=== PATIENT | male | born 1995 | race Caucasian/White ===

== ENCOUNTER 2025-02-24 21:52 | Emergency (ER) | payer MEDICAID, SELFPAY ==
[2025-02-24] VITALS (92 sets, daily range): BP systolic 167–185; BP diastolic 100–116; PULSE 95–137; RESP 11–27; TEMP 36.9; O2SAT 93–99
--- NOTE | 2025-02-24 21:45 | RT.EKG_ITS ---
APPROVED REPORT Exam: Resting ECG Reason for Exam: chest pain Patient Location: E HR:136 bpm ECG Measurements Heart Rate 136 AXIS MO 137 P 68 QRSd 88 QRS 63 QT 275 T -90 QTc 415 Conclusion Sinus tachycardia...rate> 99 Probable left atrial enlargement...P >50mS, <-0.10mV V1 Nonspecific repol abnormality, diffuse leads...ST dep, T flat/neg, ant/lat/inf I have reviewed and interpreted ECG and agree with software generated interpretation.
--- NOTE | 2025-02-24 22:00 | ED.GENADUL_ITS ---
Discharge Plan Disposition Patient Disposition: Home Condition: Good Discharge Details Clinical Impression: Chest pain, Cocaine use Primary Care Provider: None,None ED Provider: Gaston Ferraro Meds and New Rx's Prescriptions: Continued quetiapine 150 mg tablet 150 mg PO DAILY Discharge Instructions Instructions: Chest Pain, Adult ED Additional Instructions: You were seen for an episode of chest pain. Thankfully, your workup is reassuring though your heart rate and blood pressure were quite elevated likely related to the cocaine use. As we discussed avoid this drug in the future. I have placed a referral with case management to follow-up and help you obtain a primary care. Return to ED for any new or worsening chest pain, increasing shortness of breath, neurologic change, abdominal pain or other concerns. Referrals: Care Management [Provider Group] HPI General Mode of arrival: ambulatory . Date/Time Provider Initiated Documentation: 02/24/25 22:00 . Limitations to Documentation: no limitations . Information obtained by: patient and RN notes reviewed . HPI Narrative: Patient presents to ED with complaint of chest pain that started about 60 to 90 minutes ago. Lower left chest sharp in nature now more just dull but still present. Radiated a little bit up into the upper chest but not really into the neck, back, arms. Has been smoking marijuana and crack cocaine over the weekend including this evening prior to chest pain starting. He does not always smoke crack cocaine but it is not new to him. He does feel little short of breath. He has had some sweats and also developed some sores on his tongue about 4 days ago. Denies fever, sore throat, earache, congestion, cough. Has some burning discomfort in his abdomen a little bit but denies any nausea vomiting. Has been having diarrhea the last few days. He does smoke cigarettes. He does not see physicians regularly but as far as he knows he has no significant medical issues. Related Data Home Medications ?Medication ?Instructions ?Recorded ?Confirmed quetiapine 150 mg tablet 150 mg PO DAILY 02/24/25 02/24/25 Allergies Allergy/AdvReac Type Severity Reaction Status Date / Time No Known Drug Allergies Allergy Unknown Verified 02/24/25 23:45 General Stated Complaint: Chest Pain KYLE: 3 Exam Narrative Exam Narrative: Const: WDWN male in NAD. VS per triage. HEENT: NC/AT. Normal facial exam. Aphthous ulcer tip of right tongue. Neck: Supple. Trachea midline. Lungs: Normal respiratory effort. Lungs are clear. Cor: RRR without murmur. Good radial pulses. GI: Soft/ND/NT. Neuro: A+O x 3. Normal speech, mentation, gait. Cranial nerves II - XII grossly intact. No gross motor or sensory deficit. Ext: No C/C/E. Course Vital Signs Vital signs: Vital Signs Temperature 98.4 F 02/24/25 21:53 Pulse 137 H 02/24/25 21:53 Respiratory Rate 16 02/24/25 21:53 Blood Pressure 167/100 H 02/24/25 21:53 Pulse Oximetry 99 02/24/25 21:53 Temperature 98.4 F 02/24/25 21:53 Pulse 137 H 02/24/25 21:53 Respiratory Rate 16 02/24/25 21:53 Blood Pressure 167/100 H 02/24/25 21:53 Pulse Oximetry 99 02/24/25 21:53 Pain Level 6 02/24/25 21:53 Medical Decision Making Patient presents to ED with onset of chest pain 60 to 90 minutes prior to arrival. This occurred after smoking marijuana and cocaine with his roommate. Admits to smoking a fair amount of both over the . He does smoke marijuana regularly but not crack cocaine though he has in the past. Pain initially started out sharp in nature now just dull but still present. Not really described as pleuritic in nature. Does not change in regards to positioning. Has a burning sensation in his upper abdomen but no nausea or vomiting. He does smoke cigarettes otherwise no known cardiac risk factors. He appears anxious and is tachycardic as well as hypertensive which could be due to anxiety or the crack cocaine use. Chest pain differential includes pericarditis given the aphthous ulcer on his tongue. Consider cocaine induced chest pain/ischemia. PE seems less likely but given his tachycardia he cannot be PERCed out so D-dimer ordered. Dissection seems unlikely given presentation. Will give aspirin and lorazepam for symptoms given his cocaine use. His EKG from triage is sinus tachycardia with diffuse ST depression which may very well be rate related versus pericarditis versus possible ischemia but given the diffuse nature this seems unlikely. Initial laboratory studies are fairly unremarkable. Has a mildly elevated white count and slightly low potassium. Liver function and lipase are normal. First troponin normal. D-dimer normal. Patient's heart rate and anxiety improved with Ativan. Blood pressure came down over time. Chest x-ray was obtained given his negative D-dimer. Per my review this is normal. Second troponin negative. Patient still with some sharp chest pain on and off so given a dose of ketorolac. A third troponin and repeat EKG were obtained. This EKG is now normal per my read suggesting the diffuse ST segments were likely rate related. His third troponin is negative. Patient does not have primary care. Will place him on referral list for care management to assist in obtaining primary care. Patient strongly encouraged to avoid cocaine in the future. It is also suggested that he obtain his marijuana from a dispensary. He is discharged home with return precautions. Imaging Data Radiologic Study: Attestation: I personally reviewed and interpreted this imaging study as follows: Imaging: X-Ray My impression: Normal chest x-ray Lab Data Lab results reviewed: Yes I reviewed the patient's lab results. Lab results narrative: See [facility] ECG Data Attestation: I personally reviewed and interpreted this ECG (s) as follows: Prior ECG tracings: not available for review Interpretation: See EKG/MDM PFSH All Active Problems (Updated 02/25/25 @ 02:17 by Gaston Ferraro MD) Cocaine use (Acute) Chest pain (Acute) Medical History (Updated 02/25/25 @ 02:17 by Gaston Ferraro MD) No significant past medical history Social History Smoking/Tobacco Use Status: Current every day Smoking risk assessment performed?: Yes Alcohol Intake: current Alcohol Intake frequency: a few times a week Drug use: Daily Substance use type: marijuana and crack/cocaine Do you feel safe at home: Yes Do you feel safe in your relationship?: Yes
[2025-02-24] MEDS: Aspirin 81 MG CHEW 324 MG CH (22:36)
[2025-02-24] MEDS: LORazepam 20 MG/10 ML VIAL IVP (22:36)
[2025-02-24 22:45] LABS: Abs Immature Grans 0.03 10^3/uL (0.0-0.06); Absolute Basophil Count 0.03 10^3/uL (0.0-0.2); Absolute Eosinophil Count 0.01 10^3/uL (0.0-0.7); Absolute Lymphocyte Count 1.22 10^3/uL (1.2-3.4); Absolute Monocyte Count 0.76 10^3/uL (0.1-0.8); Absolute Neutrophil Count 9.11 10^3/uL (1.2-6.7); Basophils % 0.3 %; Eosinophils % 0.1 %; HCT 44.7 % (40.0-50.0); HGB 15.3 g/dL (13.5-17.5); Immature Grans % 0.3 %; Lymphocytes % 10.9 %; MCH 30.9 pg (27.0-33.0); MCHC 34.2 % (32.0-36.0); MCV 90 fL (80-95); MPV 10.2 fL (8.0-11.0); Monocytes % 6.8 %; Neutrophils % 81.6 %; Platelet Count 244 10^3/uL (130-400); RBC 4.95 10^6/uL (4.36-5.78); RDW 13.3 % (11.8-14.1); WBC 11.17 10^3/uL (4.4-10.8)
--- NOTE | 2025-02-24 23:00 | DI.RAD_ITS ---
Exam(s) XR CHEST 2V PA LATERAL EXAM: XR CHEST 2V PA LATERAL CLINICAL HISTORY: CP TECHNIQUE: 2D digital imaging was performed. Two views. COMPARISON: No exams were available for comparison FINDINGS: HEART: Normal size. Aorta: Not dilated. PULMONARY VASCULATURE: Normal. MEDIASTINUM: Unremarkable. LUNGS: Clear. PLEURAL SPACE: No pleural effusion or pneumothorax. BONE:Unremarkable for age. SOFT TISSUES: Unremarkable. IMPRESSION: No acute abnormality. DATA REPOSITORY: RADIATION DOSE DELIVERED:
[2025-02-24 23:02] LABS: ALT 30 U/L (16-63); AST 27 U/L (15-37); Albumin 4.2 g/dL (3.4-5.0); Alkaline Phosphatase 89 U/L (46-116); Anion Gap 5.6 mmol/L (3-11); BUN 11 mg/dL (7-18); Bilirubin, Total 0.4 mg/dL (0.2-1.0); CO2 29.4 mmol/L (21.0-32.0); CREATININE 1.2 mg/dL (0.70-1.30); Calcium 9.1 mg/dL (8.5-10.1); Chloride 103 mmol/L (98-107); Estimated GFR 82.92 (mL/min/1.73m2); Glucose 112 mg/dL (74-106); Lipase 31 U/L (<78); Magnesium 1.9 mg/dL (1.8-2.4); Potassium 3.4 mmol/L (3.5-5.1); Sodium 138 mmol/L (136-145); Total Protein 7.3 g/dL (6.4-8.2); Troponin I 22 ng/L (<or=76)
[2025-02-24 23:03] LABS: *AMPHETAMINES SCREEN URINE Negative (Negative); *BARBITURATES SCREEN URINE Negative (Negative); *BENZODIAZEPINES SCREEN URINE Negative (Negative); Cannabinoids THC Positive (Negative); Cocaine Screen,Urine Positive (Negative); METHADONE URINE SCREEN Negative (Negative); OPIATES URINE SCREEN Negative (Negative); Tricyclic Antidepressants Negative (Negative)
[2025-02-24 23:10] LABS: D-Dimer 223 ng/mlFEU (<500)
[2025-02-25] VITALS (68 sets, daily range): BP systolic 164–185; BP diastolic 103–140; PULSE 81–116; RESP 10–29; TEMP 36.4; O2SAT 96–100
[2025-02-25 00:05] LABS: Troponin I 30 ng/L (<or=76)
[2025-02-25] MEDS: Ketorolac 15 MG/ML VIAL IVP (01:28)
--- NOTE | 2025-02-25 01:30 | RT.EKG_ITS ---
APPROVED REPORT Exam: Resting ECG Reason for Exam: Chest pain Patient Location: E HR:87 bpm ECG Measurements Heart Rate 87 AXIS LA 141 P 54 QRSd 90 QRS 52 QT 357 T 22 QTc 430 Conclusion Sinus rhythm...normal P axis, V-rate 60- 99 Sinus Arrhythmia Normal [place]/Interval Normal ST Compared to prior EKG performed on 02/24/2025 at 21:52, ST segments are now normal.
--- NOTE | 2025-02-25 01:35 | DI.[facility]_ITS ---
PROCEDURE INFORMATION: Exam: XR Chest Exam date and time: 02/24/2025 11:49 PM Age: 29 years old Clinical indication: Other: Cp; Chest pain TECHNIQUE: Imaging protocol: Radiologic exam of the chest. Views: 2 views. COMPARISON: No relevant prior studies available. FINDINGS: Lungs: Normal. Pleural spaces: Normal. Heart/Mediastinum: Normal. Bones/joints: No acute abnormality. IMPRESSION: No acute findings. Dictated and Authenticated by: Vic Vizcaino MD. Orderin Ronan Feldman MD
[2025-02-25 02:06] LABS: Troponin I 30 ng/L (<or=76)
== END 2025-02-25 02:30 | disposition home or self-care (01) ==
PROVIDERS: Emergency Provider Emergency Medicine
DX: R07.9 Chest pain, unspecified (principal); R00.0 Tachycardia, unspecified; F14.90 Cocaine use, unspecified, uncomplicated; F12.90 Cannabis use, unspecified, uncomplicated; F17.290 Nicotine dependence, other tobacco product, uncomplicated
CPT/HCPCS: 80053; 80307; 83690; 93005; 96374; 96375; 99284; 71046; 83735; 84484; 85025; 85379; 93010; J1885; J2060

== ENCOUNTER 2025-03-24 23:28 | Emergency (ER) | payer MEDICAID, SELFPAY ==
--- NOTE | 2025-03-24 23:15 | RT.EKG_ITS ---
APPROVED REPORT Exam: Resting ECG Reason for Exam: Chest tightness Patient Location: E HR:111 bpm ECG Measurements Heart Rate 111 AXIS GA 142 P 66 QRSd 102 QRS 74 QT 336 T -16 QTc 456 Conclusion Sinus tachycardia...rate> [address] segment or T wave abnormalities to suggest occlusive CO
[2025-03-24 23:30] VITALS: BP 152/100; PULSE 110; RESP 16; TEMP 36.1; O2SAT 96
[2025-03-24 23:46] VITALS: BP 155/93; PULSE 103; PULSE 105; RESP 17; O2SAT 97
[2025-03-24 23:47] VITALS: BP 152/100
[2025-03-24 23:47] LABS: Abs Immature Grans 0.04 10^3/uL (0.0-0.06); Absolute Basophil Count 0.03 10^3/uL (0.0-0.2); Absolute Eosinophil Count 0.02 10^3/uL (0.0-0.7); Absolute Lymphocyte Count 1.59 10^3/uL (1.2-3.4); Absolute Monocyte Count 0.84 10^3/uL (0.1-0.8); Basophils % 0.3 %; Eosinophils % 0.2 %; HCT 41.9 % (40.0-50.0); HGB 14.7 g/dL (13.5-17.5); Immature Grans % 0.3 %; Lymphocytes % 13.8 %; MCH 31.3 pg (27.0-33.0); MCHC 35.1 % (32.0-36.0); MCV 89 fL (80-95); MPV 9.8 fL (8.0-11.0); Monocytes % 7.3 %; Neutrophils % 78.1 %; Platelet Count 233 10^3/uL (130-400); RDW 11.9 % (11.8-14.1); RDW-SD 39.6 fL; WBC 11.54 10^3/uL (4.4-10.8)
[2025-03-24 23:48] LABS: Absolute Neutrophil Count 9.01 10^3/uL (1.2-6.7)
[2025-03-24] MEDS: MYLANTA 30 ML, LIDOCAINE 2% VISCOUS UD 15 ML PO (23:54)
[2025-03-24] MEDS: Aspirin 81 MG CHEW 324 MG CH (23:54)
--- NOTE | 2025-03-25 | DI.RAD_ITS ---
Exam(s) XR CHEST 2V PA LATERAL EXAM: XR CHEST 2V PA LATERAL CLINICAL HISTORY: Chest pain TECHNIQUE: 2D digital imaging was performed. Two views. COMPARISON: CR,XR XR CHEST 2V PA LATERAL from 02/24/2025 FINDINGS: HEART: Normal size. Aorta: Not dilated. PULMONARY VASCULATURE: Normal. MEDIASTINUM: Unremarkable. LUNGS: Clear. PLEURAL SPACE: No pleural effusion or pneumothorax. BONE:Unremarkable for age. SOFT TISSUES: Unremarkable. IMPRESSION: No acute abnormality. The preliminary [facility] report was reviewed. DATA REPOSITORY: RADIATION DOSE DELIVERED:
[2025-03-25 00:01] VITALS: BP 163/96; PULSE 101; PULSE 103; O2SAT 98
[2025-03-25 00:03] LABS: INR 1.1 (0.9-1.1); PTT Activated 25.2 sec (20.6-30.2); Prothrombin Time 11.3 sec (9.1-11.1)
[2025-03-25 00:14] LABS: ALT 39 U/L (16-63); AST 36 U/L (15-37); Alkaline Phosphatase 80 U/L (46-116); Anion Gap 8.4 mmol/L (3-11); BUN 11 mg/dL (7-18); Bilirubin, Total 0.2 mg/dL (0.2-1.0); CO2 26.6 mmol/L (21.0-32.0); CREATININE 0.9 mg/dL (0.70-1.30); Calcium 8.4 mg/dL (8.5-10.1); Chloride 105 mmol/L (98-107); D-Dimer 334 ng/mlFEU (<500); Glucose 104 mg/dL (74-106); Lipase 55 U/L (<78); Magnesium 1.8 mg/dL (1.8-2.4); NT-proBNP 18 pg/mL (<300); Potassium 3.2 mmol/L (3.5-5.1); Sodium 140 mmol/L (136-145); Total Protein 6.6 g/dL (6.4-8.2); Troponin I 7 ng/L (<or=76)
--- NOTE | 2025-03-25 00:40 | DI.[facility]AD_ITS ---
PROCEDURE INFORMATION: Exam: XR Chest Exam date and time: 03/25/2025 12:18 AM Age: 29 years old Clinical indication: Other: Chest pain TECHNIQUE: Imaging protocol: Radiologic exam of the chest. Views: 2 views. COMPARISON: CR XR CHEST 2V PA LATERAL 02/24/2025 11:49 PM FINDINGS: Lungs: Unremarkable. No consolidation. Pleural spaces: Unremarkable. No pleural effusion. No pneumothorax. Heart/Mediastinum: Unremarkable. No cardiomegaly. Bones/joints: Unremarkable. IMPRESSION: No acute findings. Dictated and Authenticated by: Al Bartlett MD. Orderin Kevon Phillips MD
--- NOTE | 2025-03-25 00:53 | ED.GENADUL_ITS ---
Discharge Plan Disposition Patient Disposition: Home Condition: Good Discharge Details Clinical Impression: Chest pain Primary Care Provider: None,None ED Provider: Jacqueline Lund Home Meds and New Rx's Prescriptions: No Action No Known Home Meds Discharge Instructions Instructions: Chest Pain, Adult ED Additional Instructions: You need to establish care with a primary care doctor to followup on your symptoms. A list has been provided to you and we have asked care management to reach out to you as well. At your appointment, please discuss your chest pain as well as your blood pressure which is high here in the emergency department. Return to the emergency department for new or worsening symptoms including new/different/worse chest pain, difficulty breathing, feeling like you are going to pass out, numbness or weakness in your arms, or if you have any other concerns. HPI General Mode of arrival: EMS . Date/Time Provider Initiated Documentation: 03/24/25 23:37 . Limitations to Documentation: no limitations . Information obtained by: patient and old records reviewed (ed visit note january 2025) . HPI Narrative: 29yo previously healthy male presenting for chest discomfort. Onset one hour prior to arrival while watching TV, dull chest tightness and a feeling of 'burning' in his mid back. Some difficulty breathing when it first started but not now. Pain is constant. No alleviating or aggravating factors. Has never had pain like this before. Seen in this ED in January for chest pain, states that pain was more 'sharp'. Has not yet established with a PCP. No family history of early cardiac disease or sudden unexpected . Otherwise in his usual state of health with no fevers, chills, rash, nausea, vomiting, hematuria, abdominal pain, numbness, tingling, weakness, or other concerns. Related Data Home Medications ?Medication ?Instructions ?Recorded ?Confirmed Unknown [No Known Home Meds] 03/24/25 0 03/24/25 Allergies Allergy/AdvReac Type Severity Reaction Status Date / Time No Known Drug Allergies Allergy Unknown Verified 03/24/25 23:34 General Stated Complaint: Chest Pain KYLE: 3 Review of Systems Narrative: see HPI Exam Narrative Exam Narrative: General: Alert, well appearing, well nourished Head: Normocephalic, atraumatic Neck: Trachea midline, ?Neck supple. ENT: ?MMM.? No oropharygeal lesions or exudate. Cardiac: ?Tachycardiac, regular,, no murmurs appreciated Resp: No respiratory distress. CTAB. Abd: ?Soft, non-distended, nontender : ?No suprapubic tenderness. No CVA tenderness. Extremities: ?No deformities.? No peripheral edema. Equal radial pulses bilaterally. Neurologic: GCS 15. ? Moves all extremities freely against gravity. Sensation intact to light touch symmetric BL UE. 5/5 strength BL UE. Course Vital Signs Vital signs: Vital Signs Temperature 36.1 C L 03/24/25 23:30 Pulse 110 H 03/24/25 23:30 Respiratory Rate 16 03/24/25 23:30 Blood Pressure 152/100 H 03/24/25 23:30 Pulse Oximetry 96 03/24/25 23:30 Temperature 36.1 C L 03/24/25 23:30 Pulse 110 H 03/24/25 23:30 Respiratory Rate 16 03/24/25 23:30 Respiratory Effort Short of Breath 03/24/25 23:42 Respiratory Depth Normal 03/24/25 23:42 Respiratory Pattern Normal 03/24/25 23:42 Blood Pressure 152/100 H 03/24/25 23:47 Blood Pressure Mean 117 03/24/25 23:47 Pulse Oximetry 96 03/24/25 23:30 Oxygen Delivery Method Room Air 03/24/25 23:30 Oxygen Flow Rate 0 03/24/25 23:30 Pain Level 6 03/24/25 23:30 Lab/Test Results Lab/Test Results: Laboratory Tests Range/Units 03/24/25 23:41 WBC (4.4-10.8) 10^3/uL 11.54 H RBC (4.36-5.78) 10^6/uL 4.70 Hgb (13.5-17.5) g/dL 14.7 Hct (40.0-50.0) % 41.9 MCV (80-95) fL 89 MCH (27.0-33.0) pg 31.3 MCHC (32.0-36.0) % 35.1 RDW (11.8-14.1) % 11.9 Plt Count (130-400) 10^3/uL 233 MPV (8.0-11.0) fL 9.8 Immature Gran % % 0.3 Neutrophils % % 78.1 Lymphocytes % % 13.8 Monocytes % % 7.3 Eosinophils % % 0.2 Basophils % % 0.3 Nucleated RBC % (0.0-0.3) % 0.0 Absolute Neutrophils (1.2-6.7) 10^3/uL 9.01 H Absolute Lymphocytes (1.2-3.4) 10^3/uL 1.59 Absolute Monocytes (0.1-0.8) 10^3/uL 0.84 H Absolute Eosinophils (0.0-0.7) 10^3/uL 0.02 Absolute Basophils (0.0-0.2) 10^3/uL 0.03 PT (9.1-11.1) sec 11.3 H INR (0.9-1.1) 1.1 APTT (20.6-30.2) sec 25.2 D-Dimer (<500) ng/mlFEU 334 Sodium (136-145) mmol/L 140 Potassium (3.5-5.1) mmol/L 3.2 L Chloride (98-107) mmol/L 105 Carbon Dioxide (21.0-32.0) mmol/L 26.6 Anion Gap (3-11) mmol/L 8.4 BUN (7-18) mg/dL 11 Creatinine (0.70-1.30) mg/dL 0.9 Est GFR (CKD-EPI 2020) (mL/min/1.73m2) 117.10 Glucose (74-106) mg/dL 104 Calcium (8.5-10.1) mg/dL 8.4 L Magnesium (1.8-2.4) mg/dL 1.8 Total Bilirubin (0.2-1.0) mg/dL 0.2 AST (15-37) U/L 36 ALT (16-63) U/L 39 Alkaline Phosphatase (46-116) U/L 80 Troponin I (<or=76) ng/L 7 NT-Pro-B Natriuret Pep (<300) pg/mL 18 Total Protein (6.4-8.2) g/dL 6.6 Albumin (3.4-5.0) g/dL 4.0 Lipase (<78) U/L 55 Medical Decision Making 29yo previously healthy male presenting for chest discomfort. Slightly hypertensive and tachycardaic on arrival (SBP 150, HR 110's); in no acute distress and with clear lungs. EKG on arrival sinus tachycardia, appropriate intervals, no ST segment or T wave abnormalities to suggest occlusive OR. History less suggestive of acute coronary syndrome however is possible; will give 325 of ASA as well as GI cocktail while awaiting results of workup. Upper extremity BPs with no significant difference; equal radial pulses. Aortic dissection detection risk score 0; appropriate for screening with dimer. ANDREWe does have a history of cocaine use (and ED visit in January with likely cocaine associated chest pain) however denies recent recreational drug use today and EKG/VS today are less suggestive of acute cocaine toxicity than on his prior visit. If HR does not improve or HR/BP increase, would consider treatment with benzodiazapenes. -Labs reviewed as below, CBC reassuring with mild leukocytosis (nonspecific), CMP with borderline hypokalemia K of 3.2 (oral replacement ordered) and no other actionable abnormalities, Mg normal, coags unremarkable, dimer reassuring against pulmonary embolism or aortic dissection, BNP not suggestive of heart failure, lipase not suggestive of pancreatitis, initial troponin 7. -CXR independently reviewed; no focal pneumonia or pneumothorax on my view, radiology read with no acute findings. On reassessment patient reports pain has resolved, began to improve shortly after GI cocktail. HEART score 1 for RF, low risk. Repeat troponin 8, essentially flat. SBP remains in 150's-160's and HR has improved to low 90's. Would not further pursue ACS/trend troponin/admit to hospital. Appropriate for outpatient followup for possible hypertension, hypokalemia, and outpatient cardiac/GI/chest pain workup. The importance of establishing care with a PCP was stressed and he verbalized understanding. Care management referral was sent for followp within one week and he was also provided with a list of local primary care doctors. He states he will call tomorrow and try to find someone. Return precautions were reviewed and the importance of re-presenting for care if his symptoms return or worsen was stressed. Discharged home; discharge instructions and return precautions were reviewed and the patient verbalized understanding. All questions were answered and he is in full agreement with the plan. Imaging Data Radiologic Study: Imaging: X-Ray Lab Data Lab results reviewed: Yes I reviewed the patient's lab results. Labs: Laboratory Tests Range/Units 03/24/25 03/25/25 23:41 00:30 WBC (4.4-10.8) 10^3/uL 11.54 H RBC (4.36-5.78) 10^6/uL 4.70 Hgb (13.5-17.5) g/dL 14.7 Hct (40.0-50.0) % 41.9 MCV (80-95) fL 89 MCH (27.0-33.0) pg 31.3 MCHC (32.0-36.0) % 35.1 RDW (11.8-14.1) % 11.9 Plt Count (130-400) 10^3/uL 233 MPV (8.0-11.0) fL 9.8 Immature Gran % % 0.3 Neutrophils % % 78.1 Lymphocytes % % 13.8 Monocytes % % 7.3 Eosinophils % % 0.2 Basophils % % 0.3 Nucleated RBC % (0.0-0.3) % 0.0 Absolute Neutrophils (1.2-6.7) 10^3/uL 9.01 H Absolute Lymphocytes (1.2-3.4) 10^3/uL 1.59 Absolute Monocytes (0.1-0.8) 10^3/uL 0.84 H Absolute Eosinophils (0.0-0.7) 10^3/uL 0.02 Absolute Basophils (0.0-0.2) 10^3/uL 0.03 PT (9.1-11.1) sec 11.3 H INR (0.9-1.1) 1.1 APTT (20.6-30.2) sec 25.2 D-Dimer (<500) ng/mlFEU 334 Sodium (136-145) mmol/L 140 Potassium (3.5-5.1) mmol/L 3.2 L Chloride (98-107) mmol/L 105 Carbon Dioxide (21.0-32.0) mmol/L 26.6 Anion Gap (3-11) mmol/L 8.4 BUN (7-18) mg/dL 11 Creatinine (0.70-1.30) mg/dL 0.9 Est GFR (CKD-EPI 2020) (mL/min/1.73m2) 117.10 Glucose (74-106) mg/dL 104 Calcium (8.5-10.1) mg/dL 8.4 L Magnesium (1.8-2.4) mg/dL 1.8 Total Bilirubin (0.2-1.0) mg/dL 0.2 AST (15-37) U/L 36 ALT (16-63) U/L 39 Alkaline Phosphatase (46-116) U/L 80 Troponin I (<or=76) ng/L 7 8 NT-Pro-B Natriuret Pep (<300) pg/mL 18 Total Protein (6.4-8.2) g/dL 6.6 Albumin (3.4-5.0) g/dL 4.0 Lipase (<78) U/L 55 PFSH All Active Problems (Updated 03/25/25 @ 01:05 by Jacqueline Lund MD) Cocaine use (Acute) Chest pain (Acute) Medical History (Updated 03/25/25 @ 01:05 by Jacqueline Lund MD) No significant past medical history Social History Smoking/Tobacco Use Status: Current every day Smoking risk assessment performed?: Yes Alcohol Intake: current Alcohol Intake frequency: a few times a week Drug use: Daily Substance use type: marijuana and crack/cocaine Do you feel safe at home: Yes Do you feel safe in your relationship?: Yes PAWSS Have you Been Recently Intoxicated or Drunk Within the Last 30 days?: No Have you Ever Experienced Previous Episodes of Alcohol Withdrawal?: No Have you ever Experienced Withdrawal Seizures?: No Have you ever Experienced Delirium Tremens(DT)s?: No Have you ever undergone Alcohol Rehabilitation Treatment (i.e, inpt ot outpatient treatment programs)?: No Have you ever Experienced Blackouts?: No Have you ever Combined Alcohol with other Downers within the last 90 days?: No Have you ever Combined Alcohol with any other Substance of Abuse during the last 90 days?: No Positive Blood Alcohol level on Presentation? [PCS.BAL]: No Evidence of Increased Autonomic Activity (i.e. HR>120, tremor, sweating, agitation, nausea)?: No Result: 0
[2025-03-25 00:54] LABS: Troponin I 8 ng/L (<or=76)
[2025-03-25 00:59] VITALS: BP 156/90; PULSE 93
[2025-03-25] MEDS: Potassium Chloride 20 MEQ TABCR 40 MEQ PO (01:00)
[2025-03-25 01:14] VITALS: BP 156/90; PULSE 93; RESP 16; O2SAT 93
== END 2025-03-25 01:15 | disposition home or self-care (01) ==
PROVIDERS: Emergency Provider Student in an Organized Health Care Education/Training Program
DX: R07.9 Chest pain, unspecified (principal); R00.0 Tachycardia, unspecified; F17.200 Nicotine dependence, unspecified, uncomplicated
CPT/HCPCS: 80053; 83690; 93005; 99284; 71046; 83735; 83880; 84484; 85025; 85379; 85610; 85730; 93010

== ENCOUNTER 2025-04-05 02:04 | Emergency (ER) | payer MEDICAID, SELFPAY ==
[2025-04-05 02:04] VITALS: BP 170/111; PULSE 115; RESP 18; TEMP 35.8; O2SAT 97
--- NOTE | 2025-04-05 02:11 | W.ED.GENAD ---
Discharge Plan Discharge Details Chief Complaint: PsychEval Clinical Impression: Hallucinations Primary Care Provider: None,None ED Provider: Jacqueline Lund Home Meds and New Rx's Prescriptions: No Action No Known Home Meds HPI General Mode of arrival: EMS. Date/Time Provider Initiated Documentation: 04/05/25 02:08. Limitations to Documentation: no limitations. Information obtained by: patient, EMS and old records reviewed. HPI Narrative: 29yo M presenting via EMS for hallucinations. Patient reports that today he began hearing voices and seeing things; will not clarify further what these are or what the voices are saying. Denies command hallucinations. He is requesting psychiatric hospitalization. Denies any prior psych hospitalizations. Reports a history of maybe bipolar but denies ever being on any medications for this. Denies ever having hallucinations prior to tonight. Occasionally drinking, frequent marijuana and cocaine. Denies SI/HI. No fevers, chills, rash, nasuea, vomiting, recent head injuries, abdominal pain, chest pain, difficulty breathing, or other concerns. Related Data Home Medications ?Medication ?Instructions ?Recorded ?Confirmed Unknown [No Known Home Meds] 03/24/25 04/05/25 Allergies Allergy/AdvReac Type Severity Reaction Status Date / Time No Known Drug Allergies Allergy Unknown Verified 04/05/25 02:14 General Stated Complaint: PsychEval KYLE: 2 Review of Systems Narrative: see HPI Exam Narrative Exam Narrative: General: Alert,mild agitation Head: Normocephalic, atraumatic Neck: Trachea midline, ?Neck supple. Cardiac: ?Tachycardiac, regular. Resp: No respiratory distress. CTAB. Abd: ?Non-distended Extremities: ?No deformities.? No peripheral edema. Neuro: ? GCS 15.? PERRL.? EOMI.? Fluent speech, no dysarthria. Motor- 5/5 strength symmetric bilateral upper and lower extremities Sensation- ?Intact to light touch and symmetric multiple dermatomes including upper and lower extremities Coordination- No dysmetria on finger to nose Gait/station: ?Normal stance.? No truncal ataxia. Steady gait with equal normal steps Psych: Mild agitation, cooperative.? Adequately groomed.? Mood scared, affect congruent.? Speech with normal volume, rate, rythym and tone. Linear and goal directed.?+AH +VH. Denies command hallucinations. Denies SI/HI. ?Appears to be responding to internal stimuli. No abnormal movements. Course Vital Signs Vital signs: Vital Signs Temperature 35.8 C L 04/05/25 02:04 Pulse 115 H 04/05/25 02:04 Respiratory Rate 18 04/05/25 02:04 Blood Pressure 170/111 H 04/05/25 02:04 Pulse Oximetry 97 04/05/25 02:04 Temperature 35.8 C L 04/05/25 02:04 Temperature Source Tympanic 04/05/25 02:04 Pulse 115 H 04/05/25 02:04 Respiratory Rate 18 04/05/25 02:04 Blood Pressure 170/111 H 04/05/25 02:04 Blood Pressure Position Sitting 04/05/25 02:04 Pulse Oximetry 97 04/05/25 02:04 Oxygen Delivery Method Room Air 04/05/25 02:04 Oxygen Flow Rate 0 04/05/25 02:04 Pain Level 0 04/05/25 02:04 Medical Decision Making 29yo M presenting via EMS for hallucinations; patient reports that today he began hearing voices and seeing things; no command hallucinations. Patient does report possible diagnosis of bipolar but states he has not consistently taken medications and does not take any medications of any kind currently for this but has been on seroquel in the past, and also that this is the first time he has had hallucinations. Prior [facility] visits reviewed, no recorded history of bipolar or psychiatric issues before. Could certainly be bipolar but may be 2/t substance use (frequent cocaine); will also workup for medical causes of new onset psychosis with labs and head CT. Ordered PO zyprexa and ativan for symptoms for now. Hypertensive and tachycardiac on arrival; could be due to agitation and/or stimulant use- will monitor vital signs. EKG sinus tachycardia, appropriate intervals, no ST segment or T wave abnormalities to suggest occlusive CA. Labs reviewed as below, CBC reassuring with no anemia (mild leukocytosis, non-specific), CMP with no actionable abnormalities, TSH normal. CT head independently reviewed; no mass or bleed on my view; radiology read with no acute findings. On reassessment patient remains cooperative, repeat vital signs normalized. During patient belongings search, noted to have bottles prescribed seroquel and acyclovir. Patient is worried that his roommates may have 'laced' his drugs and requests drug test so UDS ordered and positive for cocaine and THC. Medically cleared; [facility] paged to evaluate patient. Will be signed out to oncoming physician; plan to followup [facility] reccs. Imaging Data Radiologic Study: Imaging: CT Scan Radiologist's impression: IMPRESSION: No acute intracranial abnormality Lab Data Lab results reviewed: Yes I reviewed the patient's lab results. PFSH All Active Problems (Updated 04/05/25 @ 06:52 by Jacqueline Lund MD) Hallucinations (Acute) Medical History (Updated 04/05/25 @ 06:52 by Jacqueline Lund MD) No significant past medical history Social History Smoking/Tobacco Use Status: Current every day Tobacco Type: cigarettes Smoking risk assessment performed?: Yes Alcohol Intake: current Alcohol Intake frequency: a few times a week Drug use: Daily Substance use type: marijuana and crack/cocaine Housing: homeless Do you feel safe at home: Yes Do you feel safe in your relationship?: Yes
--- NOTE | 2025-04-05 02:15 | RT.EKG_ITS ---
APPROVED REPORT Exam: Resting ECG Reason for Exam: tachycardia Patient Location: E HR:105 bpm ECG Measurements Heart Rate 105 AXIS IN 130 P 73 QRSd 92 QRS 81 QT 323 T 36 QTc 427 Conclusion Sinus tachycardia...rate> 99 Probable left atrial enlargement...P >50mS, <-0.10mV V1 no ST segment or T wave abnormalities to suggest occlusive OK
--- NOTE | 2025-04-05 02:59 | DI.CT_ITS ---
Exam(s) CT HEAD WO EXAM: CT HEAD WO CLINICAL HISTORY: hallucinations. TECHNIQUE: Imaging Protocol: Axial computed tomography images with coronal and sagittal reformatted images were created and reviewed COMPARISON: No exams were available for comparison FINDINGS: There are no skull fractures. There is no fluid in the visualized paranasal sinuses. There is no evidence of intracranial hemorrhage, mass effect, or shift of midline structures. There are no extra-axial fluid collections. The ventricles are not enlarged or shifted and there is no blood within the ventricular system nor within the basal cisterns. IMPRESSION: No acute intracranial findings on this noninfused CT scan of the brain. Preliminary virtual Radiology report was reviewed. RADIATION DOSE DELIVERED: 918.7mGy.cm Total DLP DATA REPOSITORY: All CT scans at this facility are submitted to the National Radiology Data Registry (NRDR) Dose Index Registry (DIR) with the [employer] (ACR). RADIATION OPTIMIZATION: All CT scans at this facility use at least one of these dose optimization techniques: automated exposure control; mA and/or kV adjustment per patient size (includes targeted exams where dose is matched to clinical indication); or iterative reconstruction.
[2025-04-05 03:01] LABS: Abs Immature Grans 0.04 10^3/uL (0.0-0.06); HCT 47.2 % (40.0-50.0); HGB 16.5 g/dL (13.5-17.5); Immature Grans % 0.3 %; MCH 31.4 pg (27.0-33.0); MCHC 35.0 % (32.0-36.0); MCV 90 fL (80-95); MPV 10.4 fL (8.0-11.0); Platelet Count 252 10^3/uL (130-400); RBC 5.26 10^6/uL (4.36-5.78); RDW 12.1 % (11.8-14.1); RDW-SD 39.9 fL; WBC 12.09 10^3/uL (4.4-10.8)
--- NOTE | 2025-04-05 03:04 | DI.VRAD_ITS ---
PROCEDURE INFORMATION: Exam: CT Head Without Contrast Exam date and time: 04/05/2025 2:43 AM Age: 29 years old Clinical indication: Other: Hallucinations TECHNIQUE: Imaging protocol: Computed tomography of the head without contrast. COMPARISON: No relevant prior studies available. FINDINGS: Brain: Normal. No hemorrhage or edema. Cerebral ventricles: No ventriculomegaly. Paranasal sinuses: Visualized sinuses are unremarkable. No fluid levels. Mastoid air cells: Unremarkable. Bones: Unremarkable. No acute fracture. Soft tissues: Unremarkable. IMPRESSION: No acute intracranial abnormality. Dictated and Authenticated by: Rickie Bear MD. Orderin Kevon Phillips MD
[2025-04-05] MEDS: LORazepam 1 MG TAB PO (03:10)
[2025-04-05] MEDS: OLANZapine 10 MG TAB PO (03:10)
[2025-04-05 03:20] LABS: ALT 36 U/L (16-63); AST 31 U/L (15-37); Albumin 4.4 g/dL (3.4-5.0); Alkaline Phosphatase 92 U/L (46-116); Anion Gap 11.5 mmol/L (3-11); BUN 6 mg/dL (7-18); Bilirubin, Total 0.3 mg/dL (0.2-1.0); CO2 26.5 mmol/L (21.0-32.0); Calcium 9.6 mg/dL (8.5-10.1); Chloride 104 mmol/L (98-107); Estimated GFR 103.19 (mL/min/1.73m2); Glucose 120 mg/dL (74-106); Potassium 4.3 mmol/L (3.5-5.1); Sodium 142 mmol/L (136-145); TSH (W/Ref FT4) 2.44 uIU/mL (0.36-3.74); Total Protein 7.8 g/dL (6.4-8.2)
[2025-04-05 03:35] LABS: Cannabinoids THC Positive (Negative); METHADONE URINE SCREEN Negative (Negative)
[2025-04-05 04:14] VITALS: BP 132/84; PULSE 64; RESP 18; TEMP 35.6; O2SAT 97
--- NOTE | 2025-04-05 07:45 | W.EDPROG ---
Date of service: 04/05/25 Time of Service: 07:46 Medical Decision Making Care assumed from outgoing provider. Patient is a 29-year-old gentleman presenting with hallucinations. Was evaluated by mental health services and patient will have referral sent for voluntary inpatient psychiatric placement. Patient is medically cleared at this time and placed into ED observation. Discharge Plan Discharge Details Chief Complaint: PsychEval Clinical Impression: Hallucinations Primary Care Provider: None,None ED Provider: Randy Payton Home Meds and New Rx's Prescriptions: No Action No Known Home Meds
--- NOTE | 2025-04-05 08:33 | PDOC.MHCN_ITS ---
Date of service: 04/05/25 Time of Service: 07:10 PHQ-9 Over the last 2 weeks, how often have you been bothered by any of the following problems? 1. Little interest or pleasure in doing things: not at all 2. Feeling down, depressed, or hopeless: several days 3. Trouble falling or staying asleep, or sleeping too much: nearly every day 4. Feeling tired or having little energy: nearly every day 5. Poor appetite or overeating: nearly every day 6. Feeling bad about yourself - or that you are a failure or have let yourself and your family down: not at all 7. Trouble concentrating on things, such as reading the newspaper or watching television: nearly every day 8. Moving or speaking so slowly that other people could have noticed? - Or the opposite - being so fidgety or restless that you have been moving around a lot more than usual: not at all 9. Thoughts that you would be better off or of hurting yourself in some way: not at all Total score: 13 If you checked off any problems, how difficult have these problems made it for you to do your work, take care of things at home, or get along with other people?: somewhat difficult PHQ-9 Results: Negative Source: Developed by Drs. Gaston Recinos, Giselle Ashton, Mohan Hess and colleagues, with an educational salo from [employer]. Suicide Severity Rate CSSRS Have you wished you were or wished you could go to sleep and not wake up?: No Have you actually had any thoughts of killing yourself?: No CSSRS3 Have you ever done anything, started to do anything or prepared to do anything to end your life?: No CSSRS4 Was this within the past three months?: No Screening Score Total Score: 0 Screening: Negative Mental Health Emergency Note Release [facility] release signed:: Yes Reason for Visit The client is unknown to [facility]. Per report of the client he is diagnosed with bi- polar disorder. The client reports that he has never been hospitalized for his mental health. Per report of [facility] attending provider Dr. Lund the client came into the ED early this morning via [employer] reporting both auditory and visual hallucinations, however denies command hallucinations. This health science writer meets with the client via telehealth for initial assessment. In the last 2 weeks has the pt presented for ES prior to today?: No Client Information Client is: New Well Housed: No,status: Homeless Stable housing Non Suicidal Self Injury Current: No Safety Risk/Harm to Self or Others Current Ideation to Harm Self or Others: No Risk: Does risk to harm exist?: No Duty to warn indicated: No Asssessment/Mental Status Appearance: Disheveled Attitude: Guarded Behavior: Unremarkable Speech: Soft Affect: Flat and Cogruent with mood Mood: Depressed Thought process: Unremarkable Hallucinations: yes, Visual and Auditory Delusions: No Attention: Poor concentration Perception: Not impaired Orientation: Fully orientated Memory: Intact Insight: Fair Judgement: Fair Neurovegetative Symptoms Sleep: Decrease Appetitie: Decrease Interests: Decrease Energy: Decrease Libido: Not applicable Substance Use: Do you use nicotine?: No Have you used substances in the last 7 days?: yes, Crack and marijuana Additional Issues: Assaultive/Threatening Behavior: No Medical Concerns: No Client engaged in active self harm w/weapon: No Threatening to run away: No Child reported abuse/neglect: No Voluntarily presenting for services: Yes Domestic violence is a concern: No Extreme Psychosis or extreme behavior is present: No Impression The client is a single 29 y/o male that is currently homeless in the [facility]. The client identifies as male and uses he/ him pronouns. All screening tools are completed and all under represented categories are honored during the assessment. [facility] ED staff report that the client was transported to the ED early this morning via [employer] due to the report of both auditory and visual hallucinations. The client reports that he has been hearing a conversation that does not involve him for a couple of weeks and states that it has been getting worse. The client reports that he sees shadows of people that are not familiar to him. The client denies SI/HI currently, but reports that if the voices and visual hallucinations continue he could start to feel suicidal. The client reports poor appetite and sleep. The client presents as very guarded throughout the assessment and appears to be falling asleep at times. Plan/Disposition Recommended Disposition: Hospitalization No. Plan: The client will remain at [facility] ED seeking voluntary inpatient treatment. Referrals will be faxed to [facility] transfer station, , [facility], and , The client will be re-assessed daily until placement is secured or the client is able to be safety planned back to the community. Person reported agreement to plan: Yes Reports/communication Outcome discussed with: ED/Personnel (Verbal report given to ED provider Dr. Payton)
--- NOTE | 2025-04-05 15:17 | CMSP_ITS ---
Date of service: 04/05/25 Time of Service: 15:17 Care Management Safety Plan Status Status: Voluntary Reason for Wait Reason for Wait: Inpatient Admission Safety Plan Safety Plan: VOLUNTARY FOR INPATIENT PSYCHIATRIC STABILIZATION.? Patient is appropriate in all interactions since arriving at [facility]; Pt has demonstrated appropriate coping and communication skills, has articulated his needs and concerns and is fully engaged during staff interactions. Safety plan has been established with patient, and care team, to adhere to patient goals, identify restrictions based on behavioral status, address nutrition, and determine allowed personal belongings, tools for hygiene and personal care. Determine level of activity including ambulation, level of supervision, visitors, and determine privileges based on behaviors and level of engagement by pt. VOLUNTARY SAFETY PLAN: 1. Will remain on suicide precautions, in paper clothes 2. Will remain in Zone B under direct supervision of one-on-one staff at all times provided by [employer]; YOVANI, CHIEF MEDICAL OFFICER mixing tank operator. 3. May have paper cups, plates, finger foods as well as a cardboard spoon with which to eat meals. 4. Follow [facility] Management of the Admitted Behavioral Health Patient policy. 5. Shower available in Zone B without restriction. 6. Personal belongings-soft items permitted at RN discretion. 7. Visitors-none at this time. 8. Activities: soft cart items, hospital tablets (Netflix/Vernon+/music) approved per RN discretion. 9.? Bathroom available in Zone B without restriction. 10. Phone: limited to [facility] cordless phone at RN discretion. Due to VOLUNTARY status, if patient wishes to leave [facility], staff will contact [facility] Crisis Screener ([phone]) and Hand Zipper Trimmer ([phone]) as soon as possible. In the event of elopement, notify [facility] Police ([phone]). Patient is currently voluntarily at [facility] and seeking inpatient admission when a bed becomes available. [facility] Frontline Pusher Runner will continue seeking placement. Please contact the Hand Zipper Trimmer ([phone]) and [facility] Pusher Runner ([phone]) for any needed changes in the Safety Plan. Safety plan has been provided to interdepartmental care team.
--- NOTE | 2025-04-05 15:17 | PDOC.CMSAFE ---
Date of service: 04/05/25 Time of Service: 15:17 Care Management Safety Plan Status Status: Voluntary Reason for Wait Reason for Wait: Inpatient Admission Safety Plan Safety Plan: VOLUNTARY FOR INPATIENT PSYCHIATRIC STABILIZATION.? Patient is appropriate in all interactions since arriving at [facility]; Pt has demonstrated appropriate coping and communication skills, has articulated his needs and concerns and is fully engaged during staff interactions. Safety plan has been established with patient, and care team, to adhere to patient goals, identify restrictions based on behavioral status, address nutrition, and determine allowed personal belongings, tools for hygiene and personal care. Determine level of activity including ambulation, level of supervision, visitors, and determine privileges based on behaviors and level of engagement by pt. VOLUNTARY SAFETY PLAN: 1. Will remain on suicide precautions, in paper clothes 2. Will remain in Zone B under direct supervision of one-on-one staff at all times provided by [employer]; YOVANI, DYE HOUSE HELPER director payment. 3. May have paper cups, plates, finger foods as well as a cardboard spoon with which to eat meals. 4. Follow [facility] Management of the Admitted Behavioral Health Patient policy. 5. Shower available in Zone B without restriction. 6. Personal belongings-soft items permitted at RN discretion. 7. Visitors-none at this time. 8. Activities: soft cart items, hospital tablets (Netflix/[employer]+/music) approved per RN discretion. 9.? Bathroom available in Zone B without restriction. 10. Phone: limited to [facility] cordless phone at RN discretion. Due to VOLUNTARY status, if patient wishes to leave [facility], staff will contact [facility] Crisis Screener ([phone]) and Wound Specialist ([phone]) as soon as possible. In the event of elopement, notify [facility] Police ([phone]). Patient is currently voluntarily at [facility] and seeking inpatient admission when a bed becomes available. [facility] Frontline Plant Breeder will continue seeking placement. Please contact the Wound Specialist ([phone]) and [facility] Plant Breeder ([phone]) for any needed changes in the Safety Plan. Safety plan has been provided to interdepartmental care team.
--- NOTE | 2025-04-05 15:19 | CMPROGNOTE_ITS ---
Date of service: 04/05/25 Time of Service: 15:19 Care Management Progress Note Progress Note Text Progress Note Text: Medhat was admitted complaining of auditory and visual hallucinations. He denies SI/HI and stated he has not had prior hospitalizations for mental health issues. Medhat stated that he may be bipolar but ois not on any medication for this. He reported that he occasionally drinks alcohol and often uses marijuana and cocaine. He was screened by [facility] crisis screeners and was deemed to be appropriate for voluntary psychiatric admission. Referrals were sent by [facility] this morning. Discharge Anticipated Barriers to Discharge: Bed availability Patient/Family Education Needs: Review discharge instructions, discuss Ask Me Three Transportation: Other (to be determined by disposition) Plan: Medhat is awaiting voluntary placement in a psychiatric facility for stabilization. Social Determinants of Health Screening Will the Patient Participate in the Screening?: Unable to obtain
--- NOTE | 2025-04-05 15:48 | W.EDPROG ---
Date of service: 04/05/25 Time of Service: 16:50 Medical Decision Making I received signout on this 29-year-old male with bipolar and new hallucinations. He is medically cleared. He has been placed in ED observation. Will update documentation as clinically warranted and signed patient out to the overnight provider. 11:07 PM No active behavioral issues. I signed patient out to Dr. Ferraro. Discharge Plan Disposition Patient Disposition: Psychiatric Hospital/Unit Discharge Details Clinical Impression: Hallucinations Primary Care Provider: None,None ED Provider: Bertrand Perez [place] Meds and New Rx's Prescriptions: No Action ibuprofen [IBU] 600 mg tablet 600 mg PO BID quetiapine 100 mg tablet 150 mg PO HS acyclovir 400 mg tablet 400 mg PO HS
--- NOTE | 2025-04-06 07:53 | ED.PSYCHBOAR ---
Date of service: 04/06/25 Time of Service: 07:53 Psychiatric Border Handoff Update Brief Story: 29-year-old gentleman with past medical history of bipolar disorder that is currently being treated for new onset hallucinations. Patient is medically cleared, being evaluated by mental health services and currently pending voluntary inpatient psychiatric placement. There have been no issues overnight. Status: voluntary Able to leave: yes Behavioral Concerns: None Potential Disposition: Psychiatric absent placement Mediation Reconciliation performed: Yes Code Status ordered: Yes Diet ordered: Yes Discharge Plan Disposition Patient Disposition: Psychiatric Hospital/Unit Discharge Details Clinical Impression: Hallucinations Primary Care Provider: None,None ED Provider: Randy Payton Home Meds and New Rx's Prescriptions: No Action ibuprofen [IBU] 600 mg tablet 600 mg PO BID quetiapine 100 mg tablet 150 mg PO HS acyclovir 400 mg tablet 400 mg PO HS
--- NOTE | 2025-04-06 12:01 | ED.PSYCHBOAR ---
Date of service: 04/06/25 Time of Service: 12:01 Psychiatric Border Handoff Update Brief Story: Patient evaluated by mental health services this morning and there has been a safety plan agreed upon for safe discharge for this patient. Patient feels comfortable going home. Return precautions advised. Discharged in stable condition Discharge Plan Disposition Patient Disposition: Home Condition: Stable Discharge Details Clinical Impression: Hallucinations Primary Care Provider: None,None ED Provider: Randy Payton Home Meds and New Rx's Prescriptions: No Action ibuprofen [IBU] 600 mg tablet 600 mg PO BID quetiapine 100 mg tablet 150 mg PO HS acyclovir 400 mg tablet 400 mg PO HS Discharge Instructions Care Plan Goals: You have been evaluated and stabilized in the emergency department, mental health services has been a part of your plan, and a safety plan has been agreed upon for discharge home. Please continue to follow the safety plan and if you have any issues or concerns, you can return to the emergency department for further treatment.
--- NOTE | 2025-04-06 12:09 | CMDISCH_ITS ---
Date of service: 04/06/25 Time of Service: 12:09 Care Management Discharge Plan Reason for Hospitalization: zone B voluntary hold Discharge Plan: Issa is discharged home on a safety plan today. This was decided after he met with [facility] hand bindery assembly worker. Huddle was held with hand bindery assembly worker, [facility] B staff, and ER brim ironer hand. Issa has been referred to [facility], by , for help with obtaining [place] health insurance. He will arrange his own ride home.
--- NOTE | 2025-04-06 12:09 | PDOC.CMDIS ---
Date of service: 04/06/25 Time of Service: 12:09 Care Management Discharge Plan Reason for Hospitalization: zone B voluntary hold Discharge Plan: Issa is discharged home on a safety plan today. This was decided after he met with [facility] fish house worker. Huddle was held with fish house worker, [facility] B staff, and ER charge manager. Issa has been referred to [facility], by , for help with obtaining [place] health insurance. He will arrange his own ride home.
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
== END 2025-04-06 13:05 | disposition home or self-care (01) ==
PROVIDERS: Student in an Organized Health Care Education/Training Program; Emergency Provider Emergency Medicine
DX: R44.3 Hallucinations, unspecified (principal)
CPT/HCPCS: 99285 ×3; 00123; 80053; 80307; 93005; 96127; G0378; 70450; 84443; 85025; 93010